=== PATIENT | female | born 1990 | race Caucasian/White ===

== ENCOUNTER 2021-11-03 14:55 | Emergency (ER) | payer MEDICAID ==
[~2021-11-03] VITALS: Ht 162.6 cm; Wt 47.7 kg
[2021-11-03 14:57] VITALS: BP 111/71
[2021-11-03] MEDS ORDERED: diphenhydrAMINE 50 MG/ML VIAL IM ONE (15:25)
[2021-11-03] MEDS ORDERED: DEXAMETHASONE 10 MG/ML VIAL IM ONE (15:25)
[2021-11-03] MEDS ORDERED: FAMOTIDINE 20 MG TAB PO ONE (15:35)
[2021-11-03] MEDS ORDERED: DEXAMETHASONE 10 MG/ML VIAL ONE (16:27)
[2021-11-03] MEDS ORDERED: diphenhydrAMINE 50 MG/ML VIAL ONE (16:27)
[2021-11-03] MEDS ORDERED: EPIN0.3S IM (17:13)
[2021-11-03] MEDS ORDERED: PRED20TA5 PO (17:13)
[2021-11-03] MEDS ORDERED: DIPH-735 PO (17:13)
[2021-11-03 17:20] VITALS: BP 110/51
--- NOTE | 2021-11-03 17:20 | NUR ---
Patient discharged with v/s stable. Written and verbal after care instructions given and explained. Patient alert, oriented and verbalized understanding of instructions. Ambulatory with steady gait. All questions addressed prior to discharge. ID band removed. Patient advised to follow up with PMD. Rx of PRENIDSONE, EPINEPHRINE, AND DIPHENHYDRAMINE given. Patient educated on indication of medication including possible reaction and side effects. Opportunity to ask questions provided and answered.
== END 2021-11-03 17:20 | disposition home or self-care (01) ==
LOC: MED 14:55
DX: L50.9 Urticaria, unspecified (principal); R21 Rash and other nonspecific skin eruption
CPT/HCPCS: 96372; 99284; J1100; J1200